=== PATIENT | female | born 1950 | race Caucasian/White ===

== ENCOUNTER 2018-12-26 20:16 | Emergency (ER) | payer OTHER ==
[~2018-12-26] VITALS: Ht 162.6 cm; Wt 97.8 kg
[2018-12-26 20:18] VITALS: Ht 162.6 cm; Wt 97.8 kg
[2018-12-26] MEDS ORDERED: ONDANSETRON 4 MG INJ IV STA (20:34)
[2018-12-26] MEDS ORDERED: morphine 4 MG/ML VIAL IV STA (20:34)
[2018-12-26] MEDS ORDERED: SOD CHLORIDE 0.9% 500 ML IV STA (20:34)
--- NOTE | 2018-12-26 21:02 | ERD ---
ER Documentation Chief Complaint Chief Complaint RUQ AP rad to back x3 days w/ fever, no n/v/d HPI During the patient's encounter translation services were utilized Language: Kiswahili Source: Family and in person 68-year-old female who presents to the emergency room with 3 days of right upper quadrant abdominal pain radiating to her back. The pain is constant, 8 out of 10 without associated fever. No nausea, vomiting or diarrhea. Mild constipation. Patient describes pain to her entire body as well. No fevers or chills. ROS All systems reviewed and are negative except as per history of present illness. Medications Home Meds Active Scripts Docusate Sodium* (Colace*) 100 Mg Capsule, 100 MG PO BID PRN for CONSTIPATION, #30 CAP Prov:HARPREET PERRY MD 12/26/18 Cephalexin* (Keflex*) 500 Mg Capsule, 500 MG PO BID for 7 Days, CAP Prov:HARPREET PERRY MD 12/26/18 Allergies Allergies: Coded Allergies: No Known Allergy (Unverified , 12/26/18) PMhx/Soc Anesthesia Reaction: No Hx Neurological Disorder: No Hx Respiratory Disorders: No Hx Cardiac Disorders: Yes (HTN) Hx Psychiatric Problems: No Hx Miscellaneous Medical Probl: Yes (DM) Hx Alcohol Use: Yes (STOPPED 2009) Hx Substance Use: No Hx Tobacco Use: No Smoking Status: Never smoker FmHx Family History: No diabetes Physical Exam Vitals Vital Signs Date Temp Pulse Resp B/P (MAP) Pulse Ox O2 O2 Flow FiO2 Time Delivery Rate 12/26/18 76 19 102/58 98 Room Air 20:35 (73) 12/26/18 98.1 87 18 143/67 97 20:18 (92) Physical Exam General: Well developed, well nourished, no acute distress Head: Normocephalic, atraumatic. Eyes: Pupils equally reactive, EOM intact ENT: Moist mucous membranes Neck: Supple, no lymphadenopathy Respiratory: Lungs clear bilaterally, no distress Cardiovascular: RRR, no murmurs, rubs, or gallops Abdominal: Soft, focal tenderness to the right upper quadrant with voluntary guarding, possible Kaur sign, no tenderness to McBurney's point, no pulsatile mass : Deferred MSK: No edema, no unilateral swelling, 5/5 strength Neurologic: Alert and oriented, moving all extremities, normal speech, no focal weakness, no cerebellar signs Skin: No rash Psych: Normal mood Result Diagram: 12/26/18204412/26/182044 Results 24 hrs Laboratory Tests Test 12/26/18 20:45 12/26/18 20:54 White Blood Count 10.5 10^3/ul Red Blood Count 4.65 10^6/ul Hemoglobin 12.2 g/dl Hematocrit 39.3 % Mean Corpuscular Volume 84.5 fl Mean Corpuscular Hemoglobin 26.2 pg Mean Corpuscular Hemoglobin Concent 31.0 g/dl Red Cell Distribution Width 15.1 % Platelet Count 448 10^3/UL Mean Platelet Volume 9.4 fl Immature Granulocytes % 0.400 % Neutrophils % 75.1 % Lymphocytes % 15.8 % Monocytes % 7.2 % Eosinophils % 0.8 % Basophils % 0.7 % Nucleated Red Blood Cells % 0.0 /100WBC Immature Granulocytes # 0.040 10^3/ul Neutrophils # 7.9 10^3/ul Lymphocytes # 1.7 10^3/ul Monocytes # 0.8 10^3/ul Eosinophils # 0.1 10^3/ul Basophils # 0.1 10^3/ul Nucleated Red Blood Cells # 0.0 10^3/ul Urine Color YELLOW Urine Clarity CLOUDY Urine pH 5.0 Urine Specific [place] 1.031 Urine Ketones TRACE mg/dL Urine Nitrite NEGATIVE mg/dL Urine Bilirubin NEGATIVE mg/dL Urine Urobilinogen 1+ mg/dL Urine Leukocyte Esterase 3+ Rocky/ul Urine Microscopic RBC 4 /HPF Urine Microscopic WBC 101 /HPF Urine Squamous Epithelial Cells MANY /HPF Urine Bacteria FEW /HPF Urine Mucus MANY /HPF Urine Hemoglobin NEGATIVE mg/dL Urine Glucose NEGATIVE mg/dL Urine Total Protein NEGATIVE mg/dl Sodium Level 139 mmol/L Potassium Level 3.9 mmol/L Chloride Level 97 mmol/L Carbon Dioxide Level 32 mmol/L Anion Gap 10 Blood Urea Nitrogen 27 mg/dl Creatinine 0.49 mg/dl Est Glomerular Filtrat Rate mL/min > 60 mL/min Glucose Level 159 mg/dl Calcium Level 9.8 mg/dl Total Bilirubin 0.2 mg/dl Direct Bilirubin 0.00 mg/dl Indirect Bilirubin 0.2 mg/dl Aspartate Amino Transf (AST/SGOT) 27 IU/L Alanine Aminotransferase (ALT/SGPT) 43 IU/L Alkaline Phosphatase 115 IU/L Total Protein 7.1 g/dl Albumin 3.9 g/dl Globulin 3.20 g/dl Albumin/Globulin Ratio 1.21 Lipase 62 U/L Bedside Urine pH (LAB) 5.5 Bedside Urine Protein (LAB) Trace Bedside Urine Glucose (UA) Negative Bedside Urine Ketones (LAB) Trace Bedside Urine Blood Negative Bedside Urine Nitrite (LAB) Negative Bedside Urine Leukocyte Esterase (L 1+ Current Medications Medications Dose Sig/Mini Start Time Status Last (Trade) Ordered Route PRN Stop Time Admin Dose Reason Admin Sodium 500 ml @ Q1H STAT 12/26/18 DC 12/26/18 Chloride 500 mls/hr IV 20:34 20:38 12/26/18 21:33 Morphine 4 mg ONCE STAT 12/26/18 DC 12/26/18 Sulfate IV 20:34 20:39 (morphine) 12/26/18 20:35 Ondansetron 4 mg ONCE STAT 12/26/18 DC 12/26/18 HCl (Zofran IV 20:34 20:39 Inj) 12/26/18 20:35 Ceftriaxone 50 ml @ ONCE ONCE 12/26/18 12/26/18 Sodium 100 mls/hr IVPB 22:30 22:20 12/26/18 22:59 Procedures/MDM EKG, MONITORS, & DIAGNOSTIC IMAGING: CT abdomen and pelvis: IMPRESSION: No evidence of urolithiasis, obstructive uropathy or diverticulitis. Diverticulosis. Nonvisualization appendix. Enlarged fatty liver. Hepatic cyst. Left renal cyst. No further workup required. 3 mm indeterminate nodule right lower lobe only seen on first image. Follow-up CT could be performed in 4 months to insure stability. Calcified granuloma right lower lobe.. Hiatal hernia. Vascular calcifications. Mild senescent degenerative changes lumbar spine. Osteoarthritis right hip. Gallbladder ultrasound: IMPRESSION: Enlarged fatty liver. No evidence of cholelithiasis, cholecystitis or biliary ob struction. Left hepatic cyst. Poor visualization of pancreas. LAB INTERPRETATION: I reviewed the laboratory testing and it shows UTI MEDICAL DECISION MAKING: Patient with right upper quadrant abdominal pain raising the concern for hepatobiliary process such as biliary colic, acute cholecystitis, choledocholithiasis. Low concern for acute intraconal process such as appendicitis but given age she is at higher risk including for bowel obstruction. CT imaging also appropriate. No signs or symptoms of chest pain or exertional symptoms that would be concerning for cardiac etiology. ER COURSE: * Patient was given pain control medication. Laboratory testing and diagnostic imaging is really only revealing for urinary tract infection. No evidence of pyelonephritis. * No signs or symptoms concerning for hepatobiliary obstruction. CT imaging essentially negative. The patient can be safely discharged with outpatient oral antibiotics. Stool softener. Return precautions were discussed and understood. CONSULTATION: None DISPOSITION PLAN: The patient does not have an identifiable emergent medical condition that warrants inpatient hospitalization at this time. The patient is deemed safe for discharge with outpatient follow-up. We discussed follow up with the patient's primary care doctor within 24 to 48 hours as needed. We also discussed return to the emergency room for worsening symptoms or worsening condition. Outpatient referral: None required Discharge Medications: Keflex, Colace Departure Diagnosis: Primary Impression: Constipation Constipation type: unspecified constipation type Qualified Codes: K59.00 - Constipation, unspecified Additional Impressions: UTI (urinary tract infection) Urinary tract infection type: acute cystitis Hematuria presence: without hematuria Qualified Codes: N30.00 - Acute cystitis without hematuria Abdominal pain Abdominal location: right upper quadrant Qualified Codes: R10.11 - Right upper quadrant pain Condition: Stable HARPREET PERRY MD Dec 26, 2018 21:02
[2018-12-26] MEDS ORDERED: CEPH-443 PO (22:15)
[2018-12-26] MEDS ORDERED: DOCU-144 PO (22:15)
[2018-12-26] MEDS ORDERED: CEFTRIAXONE 1 GM/50 ML (PMX) 50 ML IVPB ONE (22:30)
[2018-12-26 23:20] VITALS: BP 110/65; PULSE 70; RESP 18
== END 2018-12-26 23:24 | disposition home or self-care (01) ==
LOC: E/R 20:16
DX: K59.00 Constipation, unspecified (principal); N30.00 Acute cystitis without hematuria; E11.9 Type 2 diabetes mellitus without complications; I10 Essential (primary) hypertension
CPT/HCPCS: 36415; 74176; 76705; 80053; 81001; 83690; 85025; 96374; 96375; J0696; J2270; J2405; J7040; Z7502; 81003

== ENCOUNTER 2018-12-28 20:00 | Emergency (ER) | payer OTHER ==
[~2018-12-28] VITALS: Wt 98.5 kg
[~2018-12-28 20:00] MED LIST: CEPH-443 PO; DOCU-144 PO
[2018-12-28] MEDS ORDERED: KETOROLAC 30 MG INJ IV STA (23:36)
[2018-12-29] MEDS ORDERED: IOHEXOL 300MG/ML 150 ML BTL ONE (00:21)
[2018-12-29] MEDS ORDERED: SOD CHLORIDE 0.9% 100 ML ONE (00:21)
[2018-12-29] MEDS ORDERED: SOD CHLORIDE 0.9% 1,000 ML IV STA (00:34)
--- NOTE | 2018-12-29 00:34 | ERD ---
ER Documentation Chief Complaint Chief Complaint abdominal pain x 1 day, was here 3 days ago for same HPI 68-year-old female presenting with right-sided abdominal pain that radiates to the right flank. She was here 3 days ago for similar symptoms. She states the pain is aching and burning, constant, worse with movement. She states that radiates all the way to the left side of her abdomen. No associated nausea, vomiting, fever, chills. She does have some associated constipation for which she has been taking Colace that was she was prescribed 3 days ago. She denies any melena or hematochezia. She has been having only small bowel movements. No dysuria or hematuria. She was diagnosed with a UTI 3 days ago and prescribed Keflex, however patient denies any symptoms of UTI. Her symptoms have not been improving. Her pain is a 9 out of 10 with no alleviating factors. She has been taking Tylenol without relief. She states that in the past she has been told that she has fatty liver, and thinks that may be this may be related to her pain. ROS All systems reviewed and are negative except as per history of present illness. Medications Home Meds Active Scripts Lactulose* (Lactulose*) 20 Gm/30 Ml Solution, 20 GM PO BID for CONSTIPATION, #240 ML Prov:DELANEY ALBRECHT MD 12/29/18 Docusate Sodium* (Colace*) 100 Mg Capsule, 100 MG PO BID PRN for CONSTIPATION, #30 CAP Prov:HARPREET PERRY MD 12/26/18 Cephalexin* (Keflex*) 500 Mg Capsule, 500 MG PO BID for 7 Days, CAP Prov:HARPREET PERRY MD 12/26/18 Allergies Allergies: Coded Allergies: No Known Allergy (Unverified , 12/26/18) PMhx/Soc History of Surgery: Yes ([facility]) Anesthesia Reaction: No Hx Neurological Disorder: No Hx Respiratory Disorders: No Hx Cardiac Disorders: Yes (HTN,high cholesterol) Hx Psychiatric Problems: No Hx Miscellaneous Medical Probl: Yes (diabetes, cholecystitis) Hx Alcohol Use: Yes (STOPPED 2009) Hx Substance Use: No Hx Tobacco Use: No Smoking Status: Never smoker FmHx Family History: No diabetes Physical Exam Vitals Vital Signs Date Temp Pulse Resp B/P (MAP) Pulse Ox O2 O2 Flow FiO2 Time Delivery Rate 12/29/18 98.2 82 19 101/81 97 Room Air 03:03 (88) 12/29/18 71 19 99/86 (90) 97 Room Air 00:30 12/29/18 75 18 128/62 100 Room Air 00:00 (84) 12/28/18 73 23 120/80 100 Room Air 23:32 (93) 12/28/18 98.2 80 18 151/77 96 20:04 (101) Physical Exam Const: No acute distress Head: Atraumatic Eyes: Normal Conjunctiva ENT: Normal External Ears, Nose and Mouth. Neck: Full range of motion. No meningismus. Resp: Clear to auscultation bilaterally Cardio: Regular rate and rhythm, no murmurs Abd: Soft, tender to palpation of the entire right abdomen, mostly upper. No McBurney's point tenderness. Distended. No palpable masses. Normal bowel sounds Skin: No petechiae or rashes Back: Right CVA tenderness. She also has muscular tenderness to palpation in the right thoracic paraspinal muscles Neur: Awake and alert Psych: Normal Mood and Affect Result Diagram: 12/28/18 2342 12/28/18 2342 Results 24 hrs Laboratory Tests Test 12/28/18 01:30 12/28/18 23:42 Urine Color STRAW Urine Clarity CLEAR Urine pH 6.0 Urine Specific [place] 1.023 Urine Ketones NEGATIVE mg/dL Urine Nitrite NEGATIVE mg/dL Urine Bilirubin NEGATIVE mg/dL Urine Urobilinogen NEGATIVE mg/dL Urine Leukocyte Esterase NEGATIVE [place]/ul Urine Hemoglobin NEGATIVE mg/dL Urine Glucose NEGATIVE mg/dL Urine Total Protein NEGATIVE mg/dl White Blood Count 9.2 10^3/ul Red Blood Count 4.57 10^6/ul Hemoglobin 12.1 g/dl Hematocrit 39.0 % Mean Corpuscular Volume 85.3 fl Mean Corpuscular Hemoglobin 26.5 pg Mean Corpuscular Hemoglobin Concent 31.0 g/dl Red Cell Distribution Width 14.8 % Platelet Count 411 10^3/UL Mean Platelet Volume 9.0 fl Immature Granulocytes % 0.700 % Neutrophils % 63.4 % Lymphocytes % 27.4 % Monocytes % 6.6 % Eosinophils % 1.2 % Basophils % 0.7 % Nucleated Red Blood Cells % 0.0 /100WBC Immature Granulocytes # 0.060 10^3/ul Neutrophils # 5.8 10^3/ul Lymphocytes # 2.5 10^3/ul Monocytes # 0.6 10^3/ul Eosinophils # 0.1 10^3/ul Basophils # 0.1 10^3/ul Nucleated Red Blood Cells # 0.0 10^3/ul Sodium Level 138 mmol/L Potassium Level 3.4 mmol/L Chloride Level 97 mmol/L Carbon Dioxide Level 32 mmol/L Anion Gap 9 Blood Urea Nitrogen 24 mg/dl Creatinine 0.50 mg/dl Est Glomerular Filtrat Rate mL/min > 60 mL/min Glucose Level 141 mg/dl Calcium Level 9.6 mg/dl Total Bilirubin 0.2 mg/dl Direct Bilirubin 0.00 mg/dl Indirect Bilirubin 0.2 mg/dl Aspartate Amino Transf (AST/SGOT) 25 IU/L Alanine Aminotransferase (ALT/SGPT) 42 IU/L Alkaline Phosphatase 112 IU/L Total Protein 6.8 g/dl Albumin 3.8 g/dl Globulin 3.00 g/dl Albumin/Globulin Ratio 1.26 Lipase 52 U/L Current Medications Medications Dose Sig/Mini Start Time Status Last (Trade) Ordered Route PRN Stop Time Admin Dose Reason Admin Ketorolac 30 mg ONCE STAT 12/28/18 DC 12/29/18 Tromethamine IV 23:36 00:08 (Toradol) 12/28/18 23:38 IV Flush 10 ml STK-MED 12/29/18 DC (NS 10 ml) ONCE .ROUTE 00:21 12/29/18 00:22 Sodium 100 ml @ ud STK-MED 12/29/18 DC Chloride ONCE .ROUTE 00:21 12/29/18 00:22 Iohexol 150 ml STK-MED 12/29/18 DC (Omnipaque ONCE .ROUTE 00:21 300mg/ ml) 12/29/18 00:22 Sodium 1,000 ml @ Q1H STAT 12/29/18 DC 12/29/18 Chloride 1,000 mls/hr IV 00:34 00:45 12/29/18 01:33 Procedures/MDM EMERGENT LABS AND DIAGNOSTIC STUDIES: Lab Results above were reviewed and interpreted by me. CBC: no anemia or evidence of infection CMP: Mild hypokalemia. Elevated BUN with normal creatinine, likely secondary to the mild dehydration. No evidence of clinically significant electrolyte abnormality, acidosis, renal failure, hypoglycemia, liver disease, or biliary obstruction Lipase: no evidence of pancreatitis UA: No evidence of UTI or hematuria Radiology Results as interpreted by Radiology below were reviewed by Andrea Albrecht MD: Chest x-ray: No acute abnormalities CT abdomen and pelvis: Constipation noted, no other acute abnormalities. Old compression fractures in the thoracic spine also noted. Initial Nursing notes reviewed. Previous Medical Records requested via the Electronic Health Record. EMERGENCY DEPARTMENT COURSE / MEDICAL DECISION MAKING: Patient is presenting with right-sided abdominal and flank pain that has been going on for the past 3-4 days. Vitals are unremarkable and she is afebrile. G iven her exquisite tenderness on exam, repeat CT with IV contrast was ordered although she had one [address] did not show any significant abnormalities that would explain her pain. The only abnormality that was seen was stool retention. There is no evidence of obstruction. I doubt ischemic bowel. There is no evidence of pyelonephritis. I do not suspect gallbladder disease. I explained the results to the patient and recommended treatment with medications for her constipation. Follow-up with PCP was also recommended. Return precautions were discussed.. Patient's blood pressure was elevated (>120/80) but appears stable without evidence of hypertensive emergency or urgency. The patient was counseled about the risks of hypertension and urged to pursue outpatient monitoring and therapy within a week with their primary care physician. Departure Diagnosis: Primary Impression: Abdominal pain Abdominal location: right upper quadrant Qualified Codes: R10.11 - Right upper quadrant pain Additional Impression: Constipation Constipation type: unspecified constipation type Qualified Codes: K59.00 - Constipation, unspecified Condition: Stable DELANEY ALBRECHT MD Dec 29, 2018 00:34
[2018-12-29] MEDS ORDERED: LACT20SO2 PO (02:46)
[2018-12-29 03:03] VITALS: BP 101/81; PULSE 82; RESP 19
== END 2018-12-29 03:04 | disposition home or self-care (01) ==
LOC: E/R 20:00
DX: K59.00 Constipation, unspecified (principal); I10 Essential (primary) hypertension; E11.9 Type 2 diabetes mellitus without complications
CPT/HCPCS: 36415; 71045; 74177; 80053; 81003; 83690; 85025; 87086; 96374; J1885; J7030; Q9967; Z7502; Z7610